=== PATIENT | female | born 1995 | race African-American/Black ===

== ENCOUNTER 2024-06-09 05:01 | Emergency (ER) | payer OTHER ==
[~2024-06-09] VITALS: Ht 165.1 cm; Wt 59.0 kg
[2024-06-09] MEDS: ACETAMINOPHEN 500 MG TABLET PO ONE (05:37)
[2024-06-09] MEDS ORDERED: ACETAMINOPHEN 500 MG TABLET ONE (05:38)
[2024-06-09 05:46] VITALS: BP 110/76; TEMP 98; O2SAT 98
== END 2024-06-09 05:46 | disposition home or self-care (01) ==
LOC: ER 05:10
DX: H91.92 Unspecified hearing loss, left ear (principal); M79.641 Pain in right hand; Z91.040 Latex allergy status
CPT/HCPCS: 73130; A4606; A4663; A9150